=== PATIENT | female | born 1970 | race Caucasian/White ===

== ENCOUNTER → 2017-08-09 | Outpatient (CLI) | payer BC | LOC: RAD 08:09 | PROVIDERS: ATTEND Internal Medicine | DX: Z12.31 Encounter for screening mammogram for malignant neoplasm of breast (principal) | CPT/HCPCS: 77067 ==

== ENCOUNTER → 2018-02-08 | Outpatient (CLI) | payer BC ==
--- NOTE | 2018-02-08 15:13 | MRI ---
MRI left foot without contrast Indication: Left foot and ankle pain and swelling, felt a 'pop' 2-3 weeks ago. Comparison: None Technique: Multiplanar multi sequence MR images of the left foot were obtained without contrast. Findings: There is mild increased fluid weighted signal of the medial distal talus and proximal later al cuboid. No discrete fracture line is identified. The marrow signal and bony alignment are otherwis e unremarkable. No evidence for talar dome osteochondral defect. The anterior talofibular, calcaneofi bular, posterior talofibular, anterior and posterior tibiofibular, and medial deltoid ligaments are i ntact. The Lisfranc ligaments are intact. The major tendons of the foot and ankle demonstrate no sign ificant abnormality. Plantar fascia appears normal. The intrinsic muscles are unremarkable. No discre te collection or mass identified. Impression: Nonspecific mild marrow edema of the medial distal talus and proximal lateral cuboid, of uncertain cl inical significance. Correlation is recommended. No discrete fracture is identified. Otherwise unremarkable MRI of the foot and ankle. Reported By:
== END ==
LOC: RAD 11:48
PROVIDERS: ATTEND Internal Medicine
DX: M25.572 Pain in left ankle and joints of left foot (principal); M79.672 Pain in left foot
CPT/HCPCS: 73721

== ENCOUNTER → 2018-02-14 | Outpatient (CLI) | payer BC ==
--- NOTE | 2018-02-14 13:21 | MRI ---
MRI left ankle without contrast Indication: Left ankle and foot pain and swelling, felt a pop a few weeks ago Technique: Multisequence, multiplanar MR images of the left ankle were obtained without IV contrast. Comparison: Left foot MRI 02/08/18 Findings: Previously seen subtle marrow edema within the posterior lateral cuboid and medial distal t alus is again seen and unchanged since prior exam. No discrete fracture identified. Remaining visual ized marrow signal is normal. There is minimal chondrosis of the calcaneocuboid joint with small subc hondral cyst formation within the anterior calcaneus. Remaining visualized joint spaces are relativel y well maintained. No significant joint effusion or discrete talar dome osteochondral lesions are yanna ntified. The syndesmotic ligaments, lateral ligaments of the ankle and deltoid ligamentous complex is intact. The peroneal, medial flexor and extensor tendons of the ankle are normal. The Achilles tendon is norm al in signal and morphology. The plantar fascia is normal as well. Impression: Stable subtle edema of the medial distal talus and posterior lateral cuboid without discrete fracture identified. Findings are again nonspecific and could be degenerative in nature or represent bone con tusions or mild stress reaction. Correlation again recommended. The remainder of the exam is otherwise unremarkable. Reported By:
== END ==
LOC: RAD 11:53
PROVIDERS: ATTEND Internal Medicine
DX: M25.572 Pain in left ankle and joints of left foot (principal); M79.672 Pain in left foot; R60.0 Localized edema
CPT/HCPCS: 73721